=== PATIENT | female | born 1940 | race African-American/Black ===

== ENCOUNTER 2018-07-16 14:29 | Emergency (ER) | payer MEDICARE, MEDICAID ==
[2018-07-16] MEDS ORDERED: ASPIRIN 81 MG TABLET, CHEWABLE PO ONE (15:55)
[2018-07-16] MEDS ORDERED: ACETAMINOPHEN 325 MG TABLET PO ONE (15:55)
[2018-07-16 16:34] LABS: ABSOLUTE BASOPHILS # (AUTO) 0.1 10^3/uL (0.0-0.2); ABSOLUTE EOSINOPHILS # (AUTO) 0.1 10^3/uL (0.0-0.6); ABSOLUTE LYMPHOCYTES (AUTO) 2.3 10^3/uL (0.5-4.7); ABSOLUTE MONOCYTES (AUTO) 0.8 10^3/uL (0.1-1.4); ABSOLUTE NEUT (AUTO) 6.6 10^3/uL (1.7-8.2); BASOPHILS % (AUTO) 0.7 % (0-2); HEMATOCRIT 35.5 % (36.0-47.0); HEMOGLOBIN 12.1 g/dL (12.0-15.5); LYMPHOCYTES % (AUTO) 23.1 % (13-45); MEAN CORPUSCULAR HEMOGLOBIN 30.8 pg (27.0-33.4); MEAN CORPUSCULAR HGB CONC 34.1 g/dL (32.0-36.0); MEAN CORPUSCULAR VOLUME 90 fl (80-97); MONOCYTES % (AUTO) 8.4 % (3-13); PLATELET COUNT 334 10^3/uL (150-450); RED BLOOD COUNT 3.93 10^6/uL (3.72-5.28); RED CELL DISTRIBUTION WIDTH 13.9 % (11.5-14.0); SEGMENTED NEUTROPHILS % (AUTO) 66.8 % (42-78); TOTAL CELLS COUNTED % (AUTO) 100 %; WHITE BLOOD COUNT 9.9 10^3/uL (4.0-10.5)
[2018-07-16 16:48] LABS: ALANINE AMINOTRANSFERASE < 6 U/L (9-52); ALBUMIN 3.4 g/dL (3.5-5.0); ALKALINE PHOSPHATASE 148 U/L (38-126); ANION GAP 8 (5-19); ASPARTATE AMINO TRANSFERASE 36 U/L (14-36); BILIRUBIN,DIRECT 0.4 mg/dL (0.0-0.4); BILIRUBIN,TOTAL 0.6 mg/dL (0.2-1.3); BLOOD UREA NITROGEN 6 mg/dL (7-20); CALCIUM 9.3 mg/dL (8.4-10.2); CARBON DIOXIDE 26 mmol/L (22-30); CHLORIDE 103 mmol/L (98-107); CREATINE KINASE 35 U/L (30-135); GLUCOSE 111 mg/dL (75-110); POTASSIUM 3.9 mmol/L (3.6-5.0); SODIUM 137.4 mmol/L (137-145); TOTAL PROTEIN 7.2 g/dL (6.3-8.2)
--- NOTE | 2018-07-16 16:48 | RADIOLOGY REPORT (SQ) ---
EXAM DESCRIPTION: CHEST SINGLE VIEW COMPLETED DATE/TIME: 07/16/2018 4:37 pm REASON FOR STUDY: chest pain COMPARISON: None. EXAM PARAMETERS: NUMBER OF VIEWS: One view. TECHNIQUE: Single frontal radiographic view of the chest acquired. RADIATION DOSE: NA LIMITATIONS: None. FINDINGS: LUNGS AND PLEURA: No opacities, masses or pneumothorax. No pleural effusion. MEDIASTINUM AND HILAR STRUCTURES: No masses. Contour normal. HEART AND VASCULAR STRUCTURES: Heart normal in size. Normal vasculature. BONES: No acute findings. HARDWARE: None in the chest. OTHER: No other significant finding. IMPRESSION: NO ACUTE RADIOGRAPHIC FINDING IN THE CHEST. TECHNICAL DOCUMENTATION: JOB ID: [id number] [employer]- All Rights Reserved Reading location - IP/workstation name: [email or web address]
[2018-07-16 17:03] LABS: CREATINE KINASE MB < 0.22 ng/mL (<4.55); TROPONIN I < 0.012 ng/mL
--- NOTE | 2018-07-16 17:55 | ER Document Report ---
ED General - General Chief Complaint: Shoulder Pain Stated Complaint: SHOULDER PAIN Time Seen by Provider: 07/16/18 15:41 Mode of Arrival: Ambulatory Information source: Patient, Relative TRAVEL OUTSIDE OF THE [place] IN LAST 30 DAYS: No - HPI Patient complains to provider of: right shoulder pain Onset: Other - 77-year-old female presents for evaluation of right-sided shoulder pain which started yesterday a little bit with a cough and then a nagging right-sided intermittent shoulder pain today. The pain is been intermittent, nothing makes it better or worse. She specifically denies any recent illnesses, abdominal pain, diarrhea conservation dysuria fevers chills shortness of breath exertional dyspnea. Family notes that she does have some complaints including yesterday. Past Medical History - General Information source: Patient, Relative - Social History Smoking Status: Never Smoker Chew tobacco use (# tins/day): No Frequency of alcohol use: None Drug Abuse: None Family History: None Patient has suicidal ideation: No Patient has homicidal ideation: No Neurological Medical History: Reports: Hx Seizures - 30 + years ago Renal/ Medical History: Denies: Hx Peritoneal Dialysis Past Surgical History: Reports: Hx Appendectomy, Hx Cardiac Catheterization - 3 stents, Hx Mastectomy Review of Systems - Review of Systems -: Yes All other systems reviewed and negative Physical Exam - Vital signs Vitals: Temp Pulse BP Pulse Ox 98.2 F 87 147/80 H 98 07/16/18 14:34 07/16/18 14:34 07/16/18 14:34 07/16/18 14:34 Interpretation: Normal - General General appearance: Appears well, Alert - HEENT Head: Normocephalic, Atraumatic Eyes: Normal Pupils: PERRL - Respiratory Respiratory status: No respiratory distress Chest status: Tender - tenderness along the right chest wall Breath sounds: Normal Chest palpation: Normal - Cardiovascular Rhythm: Regular Heart sounds: Normal auscultation Murmur: No - Abdominal Inspection: Normal Distension: No distension Bowel sounds: Normal Tenderness: Nontender Organomegaly: No organomegaly - Back Back: Normal, Nontender - Extremities General upper extremity: Normal inspection, Nontender, Normal color, Normal ROM, Normal temperature General lower extremity: Normal inspection, Nontender, Normal color, Normal ROM, Normal temperature, Normal weight bearing. No: Maria Luz's sign - Neurological Neuro grossly intact: Yes Cognition: Normal Orientation: AAOx4 Jovon Coma Scale Eye Opening: Spontaneous [place] Coma Scale Verbal: Oriented [place] Coma Scale Motor: Obeys Commands Jovon Coma Scale Total: 15 Speech: Normal Motor strength normal: LUE, RUE, LLE, RLE Sensory: Normal - Psychological Associated symptoms: Normal affect, Normal mood - Skin Skin Temperature: Warm Skin Moisture: Dry Skin Color: Normal Course - Re-evaluation Re-evalutation: 07/16/18 18:34 This is an exceptionally pleasant 77-year-old female who presents for evaluation of right-sided shoulder pain. She notes that the pain - Vital Signs Vital signs: Temp Pulse Resp BP Pulse Ox 98.2 F 87 16 150/80 H 98 07/16/18 14:34 07/16/18 14:34 07/16/18 17:00 07/16/18 16:01 07/16/18 17:00 - Laboratory Result Diagrams: 07/16/18 16:22 07/16/18 16:22 Laboratory results interpreted by me: 07/16/18 07/16/18 16:22 16:22 Hct 35.5 L BUN 6 L Glucose 111 H ALT < 6 L Alkaline Phosphatase 148 H Albumin 3.4 L Discharge - Discharge Clinical Impression: Cough Shoulder pain, right Qualifiers: Chronicity: acute Qualified Code(s): M25.511 - Pain in right shoulder Condition: Good Disposition: HOME, SELF-CARE Instructions: Chest Pain of Unclear Cause ([facility]) Additional Instructions: You were seen today in the emergency department for the pain in her shoulder. You had evaluation including a physical exam, and EKG, and x-ray, blood work. The blood work did not show an obvious cause for why you are having pain in your right shoulder today. Your EKG was reassuring, your x-ray did not show any problems. I believe likely you have a shoulder muscle strain. You should use Tylenol as you need to help with this strain and pain. You should return in case you have any worsening shortness of breath or pain in the chest. Forms: Elevated Blood Pressure
[2018-07-16 19:53] VITALS: BP 142/77
--- NOTE | 2018-07-16 20:34 | EKG REPORT ---
SEVERITY:- ABNORMAL ECG - SINUS RHYTHM EARLY PRECORDIAL TRANSITION, CONSIDER OLD TRUE POST VT : Confirmed by: Jaime Gaston MD 16-Jul-2018 20:33:48
== END 2018-07-16 19:53 | disposition home or self-care (01) ==
LOC: ER 14:29
DX: R05 Cough (principal); M25.511 Pain in right shoulder
CPT/HCPCS: 93005; 99284; 36415; 82553; 82550; 85025; 80053; 84484; 71045; 93010; A9270 ×2

== ENCOUNTER 2018-08-22 20:00 | Emergency (ER) | payer MEDICARE, MEDICAID ==
[2018-08-22] MEDS ORDERED: OXYCODONE-ACETAMINOPHEN 5-325 MG TABLET PO ONE (22:42)
[2018-08-22] MEDS ORDERED: IBUPROFEN 400 MG TABLET PO ONE (22:43)
--- NOTE | 2018-08-23 00:28 | EKG REPORT ---
SEVERITY:- ABNORMAL ECG - SINUS RHYTHM LAD, CONSIDER LAFB OR INFERIOR INFARCT : Confirmed by: Nichole Clark MD 23-Aug-2018 00:27:01
[2018-08-23 00:34] VITALS: BP 123/82
--- NOTE | 2018-08-23 07:06 | ER Document Report ---
Entered by NIDIA BOWENS SCRIBE 08/22/18 2241 Acting as scribe for:ANKIT HERNANDEZ MD ED Neck/Back Problem - General Chief Complaint: Neck Pain < 24hrs old Stated Complaint: PAIN IN NECK Time Seen by Provider: 08/22/18 22:17 Primary Care Provider: MOLLY WAYNE MD [Primary Care Provider] - Follow up as needed Information source: Patient Notes: 77-year-old female who presents to the emergency department today with a x2-3 day history of neck pain with an associated headache. Patient denies any trauma. TRAVEL OUTSIDE OF THE [place] IN LAST 30 DAYS: No - Related Data Allergies/Adverse Reactions: No Known Allergies Allergy (Unverified 08/22/18 20:01) Past Medical History - General Information source: Patient - Social History Smoking Status: Never Smoker Cigarette use (# per day): No Frequency of alcohol use: None Drug Abuse: None Lives with: Family Family History: None Neurological Medical History: Reports: Hx Seizures - 30 + years ago Renal/ Medical History: Denies: Hx Peritoneal Dialysis Past Surgical History: Reports: Hx Appendectomy, Hx Cardiac Catheterization - 3 stents, Hx Mastectomy Review of Systems - Review of Systems Constitutional: No symptoms reported EENT: No symptoms reported Cardiovascular: No symptoms reported Respiratory: No symptoms reported Gastrointestinal: No symptoms reported Genitourinary: No symptoms reported Female Genitourinary: No symptoms reported Musculoskeletal: See HPI, Neck pain Skin: No symptoms reported Hematologic/Lymphatic: No symptoms reported Neurological/Psychological: See HPI, Headaches -: Yes All other systems reviewed and negative Physical Exam - Vital signs Vitals: Temp Pulse Resp BP Pulse Ox 98.2 F 95 20 118/81 99 08/22/18 20:34 08/22/18 20:34 08/22/18 20:34 08/22/18 20:34 08/22/18 20:34 - Notes Notes: Physical Exam: General: Alert, mouth full of peanuts - had to spit them out to talk. HEENT: Normocephalic. Atraumatic. PERRL. Extraocular movements intact. Oropharynx clear. Neck: Cervical spine and trapezius musculature tenderness with palpation. Respiratory: No respiratory distress. Clear and equal breath sounds bilaterally. Cardiovascular: Regular rate and rhythm. Abdominal: Normal Inspection. Non-tender. No distension. Normal Bowel Sounds. Back: Non-tender. No deformity or step off. Extremities: Moves all four extremities. Upper extremities: Normal inspection. Normal ROM. Lower extremities: Normal inspection. No edema. Normal ROM. Neurological: Normal cognition. AAOx4. Normal speech. Psychological: Normal affect. Normal Mood. Skin: Warm. Dry. Normal color. Course - Re-evaluation Re-evalutation: 08/23/18 00:11 Patient states that her headache is much better, she is feeling better. Repeat evaluation shows posterior cervical muscles are still quite tender but she states they are much better than they were. I think she would benefit from a mild nonsedating muscle relaxer and a low-dose pain medication for the next few days. A family member reports that she will be staying with the patient if she is going to be taking medications. - Vital Signs Vital signs: Temp Pulse Resp BP Pulse Ox 98.2 F 95 20 118/81 99 08/22/18 20:34 08/22/18 20:34 08/22/18 20:34 08/22/18 20:34 08/22/18 20:34 Discharge - Discharge Clinical Impression: Muscle tension headache Posterolateral cervical muscle strain Qualifiers: Encounter type: initial encounter Qualified Code(s): S16.1XXA - Strain of muscle, fascia and tendon at neck level, initial encounter Condition: Stable Disposition: HOME, SELF-CARE Additional Instructions: Tension Headache Your problem has been diagnosed as muscle tension headache. This very common type of headache occurs because of tightness in the muscles of the head and neck. The headache may last hours or days. The treatment of uncomplicated tension headaches is rest and pain medication. Often, the newer antiinflammatory pain medications are prescribed, as these also decrease the irritability of the painful tissues. Muscle relaxers, cold packs, or warm packs are sometimes helpful. Anti-anxiety medication or narcotics are sometimes needed temporarily, but are best avoided in the long run. Your doctor has evaluated your headache problem, and finds no evidence of a serious health problem as a cause for the headache. If your headache becomes more severe, or if new symptoms develop (such as fever, stiff neck, vomiting, or decreasing alertness) you should be re-examined by the physician. Take the medication as prescribed for pain and muscle spasms in your neck. Take ibuprofen 400 mg every 8 hours for the next few days. Use your neck support pillow when you are sitting up. Follow-up with Dr. Wayen if not improving. RETURN TO THE EMERGENCY ROOM IF ANY NEW OR WORSENING SYMPTOMS. Prescriptions: Methocarbamol [Robaxin 500 mg Tablet] 500 mg PO QID #20 tablet Oxycodone HCl/Acetaminophen [Percocet 2.5-325 Mg Tablet] 1 each PO Q4 PRN #12 tablet PRN Reason: Referrals: MOLLY WAYNE MD [Primary Care Provider] - Follow up as needed Scribe Attestation: 08/23/18 00:15 I personally performed the services described in the documentation, reviewed and edited the documentation which was dictated to the scribe in my presence, and it accurately records my words and actions. I personally performed the services described in the documentation, reviewed and edited the documentation which was dictated to the scribe in my presence, and it accurately records my words and actions.
== END 2018-08-23 00:53 | disposition home or self-care (01) ==
LOC: ER 20:00
DX: G44.209 Tension-type headache, unspecified, not intractable (principal); M54.2 Cervicalgia
CPT/HCPCS: 93005; 99283; 93010; A9270 ×2; J3490

== ENCOUNTER → 2018-08-28 | Outpatient (CLI) | payer MEDICARE, MEDICAID ==
--- NOTE | 2018-08-31 09:34 | WOMENS IMAGING REPORT ---
EXAM DESCRIPTION: 3D SCREENING MAMMO LEFT COMPLETED DATE/TIME: 08/28/2018 12:16 pm REASON FOR STUDY: ROUTINE LEFT SCREENING;Z12.31 Z12.31 ENCNTR SCREEN MAMMOGRAM FOR MALIGNANT NEOPLA SM OF [place] COMPARISON: Multiple since 2008 TECHNIQUE: Standard craniocaudal and mediolateral oblique views of the left breast recorded using di gital acquisition and breast tomosynthesis. Right mastectomy in 1999 LIMITATIONS: None. FINDINGS: BREAST: Left No masses, calcifications or architectural distortion. No areas of suspicion. Benign breast parenchymal calcifications are present. Old stereotactic clips are present. Read with the assistance of CAD. .[facility] - R2 Cenova Version 1.3 .[facility] - R2 Cenova Version 2.1 .[facility] - R2 Cenova Version 2.4 .[facility] - R2 Cenova Version 2.4 .[facility] - R2 Operator Engineer Version 9.2 IMPRESSION: NORMAL MAMMOGRAM. BIRADS 1. BREAST DENSITY: a. The breasts are almost entirely fatty. BIRAD: 1 Negative RECOMMENDATION: RECOMMENDATION: ROUTINE SCREENING. COMMENT: The patient has been notified of the results by letter per SA requirements. Additional no tification policies are in place for contacting patient with suspicious or incomplete findings. Quality ID #[id number]: The [employer] recommends an annual screening mammogram for women aged 40 years or over. This facility utilizes a reminder system to ensure that all patients receive reminder letters, and/or direct phone calls for appointments. This includes reminders for routine scr eening mammograms, diagnostic mammograms, or other Breast Imaging Interventions when appropriate. Th is patient will be placed in the appropriate reminder system. The [employer] (ACR) has developed recommendations for screening MRI of the breast s in certain patient populations, to be used in conjunction with mammography. Breast MRI surveillance may be appropriate for women with more than 20% lifetime risk of developing breast cancer as determi chip by genetic testing, significant family history of the disease, or history of mantle radiation for Hodgkins Disease. ACR Practice Guidelines 2008. DBT Technology DBT is a type of tomographic mammography. With conventional mammography, overlapping breast tissue ma y make lesions difficult to detect, even with good compression. DBT uses an x-ray tube that rotates a round the breast, taking images at different angles. These images are then combined to create thin sl ices of the breast that the radiologist can view as a 3D reconstruction. The [employer] unit can perform full-field digital mammograms (2D imaging); or DBT (3D imaging); or both, in a combination mode that quickly performs both the mammogram and the tomosynthesis scan while the breast is still compressed. PQRS 6045F: Fluoroscopic imaging is not utilized for breast tomosynthesis. TECHNICAL DOCUMENTATION: FINDING NUMBER: (1) ASSESSMENT: (1) JOB ID: [id number] [employer]- All Rights Reserved Reading location - IP/workstation name: [email or web address]
== END ==
LOC: WI 10:36
PROVIDERS: ATTEND Internal Medicine
DX: Z12.31 Encounter for screening mammogram for malignant neoplasm of breast (principal)